=== PATIENT | female | born 1960 | race Two or more races ===

== ENCOUNTER 2023-08-17 06:29 | Day surgery (SDC) | payer BC ==
[~2023-08-17] VITALS: Ht 157.5 cm; Wt 120.2 kg
[~2023-08-17 06:29] MED LIST: ATEN-60 PO
[2023-08-17] MEDS ORDERED: ceFAZolin 2 GM/D5W100ml 100 ML IV ONE (06:40)
[2023-08-17] MEDS ORDERED: BUPIVACAINE HCL 50 ML ONE (07:05)
[2023-08-17] MEDS ORDERED: LIDOCAINE HCL (LOCAL ANESTH.) 0.5 % 50ML MDV IJ ONE (07:05)
[2023-08-17] MEDS ORDERED: fentaNYL CITRATE 100 MCG/2 ML VL ONE (07:07)
[2023-08-17 07:39] VITALS: PULSE 74; RESP 18; TEMP 97.1; O2SAT 92
[2023-08-17] MEDS ORDERED: MEPERIDINE HCL (25 MG/ML) 1ML VIAL IV PRN (07:45)
[2023-08-17] MEDS ORDERED: HYDROmorphone HCL 2 MG/ML VL/or syr IV PRN (07:45)
[2023-08-17] MEDS ORDERED: ONDANSETRON HCL 4 MG/2 ML VIAL IV PRN (07:45)
[2023-08-17 08:30] VITALS: PULSE 64; RESP 13; O2SAT 95
[2023-08-17 08:34] VITALS: BP 119/77; PULSE 64; RESP 13; O2SAT 95
== END 2023-08-17 08:42 | disposition home or self-care (01) ==
LOC: SUR 06:29
PROVIDERS: ATTEND Orthopaedic Surgery Adult Reconstructive Orthopaedic Surgery
DX: M65.341 Trigger finger, right ring finger (principal)
CPT/HCPCS: 26055; J3010; J3490